=== PATIENT | female | born 1990 | race Caucasian/White ===

== ENCOUNTER 2018-11-21 05:28 | Inpatient (IN) | payer MEDICAID ==
[~2018-11-21] VITALS: Ht 172.7 cm; Wt 150.9 kg
[2018-11-21] VITALS (18 sets, daily range): BP systolic 113–137; BP diastolic 64–88; PULSE 54–75; TEMP 97.2–98.8
[~2018-11-21 05:28] MED LIST: ALDOMET 250MG250 MG PO; MAXZIDE-25MG TA1 TAB PO; MOTRIN 600600 MG/TAB PO; MOTRIN 800800 MG/TAB PO; PERCOCET 325 MG1 TA2 PO; PRENATAL1 TA1; SENOKOT S 50 MG1 TAB PO; TUMS E-X750 MG PO
--- NOTE | 2018-11-21 05:35 | NUR ---
0535 ADMITTED TO [facility] FOR AM C/S. ORIENTED TO ROOM. EFM ON AND PERMITS SIGNED.
[2018-11-21 06:19] LABS: BASO % 0.5 % (0.0-2.0); EOS % 0.4 % (0-4.0); GRAN # 5.4 (1.4-6.5); HEMATOCRIT 37.9 % (37.0-47.0); HEMOGLOBIN 12.7 g/dl (12.5-16.0); LYMPH # 2.4 (1.2-3.4); LYMPH % 28.8 % (20.0-51.0); MEAN CELL VOLUME 90 fl (80.0-100.0); MEAN CORPUSCULAR HEMOGLOBIN 30 pg (27.0-31.0); MEAN CORPUSCULAR HGB CONC 34 g/dl (33.0-37.0); MONO # 0.5 (0.1-0.6); MONO % 5.7 % (1.7-9.3); PLATELET COUNT 203 K/mm3 (130-400); RED BLOOD COUNT 4.21 M/mm3 (4.10-5.30); REDCELL DISTRIBUTION WIDTH-CV 13.2 % (11.5-14.5)
[2018-11-21] MEDS ORDERED: ZOFRAN 4MG T4 MG/TAB (06:19)
[2018-11-21] MEDS ORDERED: ZANTAC 150MG T150 MG PO (06:20)
--- NOTE | 2018-11-21 17:40 | NUR ---
Patient ambulatory to bathroom with standby assist. Catheter removed, pericare done and new gown/pad/chucks. Patient tolerates well will continue to monitor.
[2018-11-22 01:45] VITALS: BP 103/65; PULSE 64; TEMP 98.6
[2018-11-22 09:00] VITALS: BP 125/74; PULSE 84; TEMP 98.4
[2018-11-22 12:00] VITALS: BP 137/90; PULSE 92; TEMP 97.9
[2018-11-22 17:00] VITALS: BP 140/81; PULSE 65; TEMP 98
[2018-11-22 17:54] LABS: COLLECTION METHOD CLEAN CATCH
[2018-11-22 17:56] LABS: BASO % 0.3 % (0.0-2.0); EOS # 0.2 (0.0-0.7); EOS % 1.8 % (0-4.0); GRAN # 5.9 (1.4-6.5); GRAN % 66.4 % (42.2-75.2); HEMOGLOBIN 11.1 g/dl (12.5-16.0); LYMPH # 2.1 (1.2-3.4); MEAN CELL VOLUME 94 fl (80.0-100.0); MEAN CORPUSCULAR HEMOGLOBIN 30 pg (27.0-31.0); MEAN CORPUSCULAR HGB CONC 32 g/dl (33.0-37.0); MEAN PLATELET VOLUME 11.2 fl (7.4-10.4); MONO # 0.6 (0.1-0.6); MONO % 7.1 % (1.7-9.3); PLATELET COUNT 174 K/mm3 (130-400); RED BLOOD COUNT 3.65 M/mm3 (4.10-5.30); REDCELL DISTRIBUTION WIDTH-CV 13.2 % (11.5-14.5)
[2018-11-22 17:57] LABS: HEMATOCRIT 34.3 % (37.0-47.0)
[2018-11-22 18:05] LABS: PH 6 (5-8); SQUAMOUS EPITHELIAL 20-50 /hpf; URINE APPEARANCE Hazy; URINE BACTERIA None Seen /hpf; URINE BILIRUBIN Negative (NEGATIVE); URINE BLOOD 2+ (NEGATIVE); URINE COLOR Red; URINE GLUCOSE Negative (NEGATIVE); URINE KETONE Trace (NEGATIVE); URINE LEUKOCYTE ESTERASE Trace (NEGATIVE); URINE NITRATE Negative (NEGATIVE); URINE PROTEIN(semi-quant) 3+ (NEGATIVE); URINE RBC >50 /hpf; URINE UROBILINOGEN Negative (NEGATIVE)
[2018-11-22 18:06] LABS: BILIRUBIN,TOTAL 0.2 mg/dL (0.0-1.0); CALCIUM 8.6 mg/dL (8.4-10.2); CREATININE, serum 0.86 mg/dL (0.52-1.25); POTASSIUM 4.5 mmol/L (3.4-5.0); TOTAL PROTEIN 5.8 gm/dL (6.4-8.2)
[2018-11-22 20:58] VITALS: BP 150/91; PULSE 78; TEMP 98.1
[2018-11-22 22:00] VITALS: BP 135/71; PULSE 63
--- NOTE | 2018-11-23 07:30 | NUR ---
Rests in bed, alert, sits up in chair. Spouse at bedside holding baby. Denies any needs at this time.
[2018-11-23 07:45] VITALS: BP 139/95; PULSE 87; TEMP 97.9
--- NOTE | 2018-11-23 10:23 | NUR ---
Rests in bed, alert. Holds baby, denies any needs at this time.
[2018-11-23] MEDS ORDERED: PERCOCET 325 MG1 TA2 PO (11:17)
[2018-11-23] MEDS ORDERED: IBU600 MG PO (11:17)
== END 2018-11-23 12:10 | disposition home or self-care (01) | DRG 784 ==
LOC: OB 05:28 → LDR 20:26 → OB 11-23 12:10
PROVIDERS: Obstetrics & Gynecology; ADMIT Obstetrics & Gynecology
PROC: 10D00Z1 Extraction of Products of Conception, Low, Open Approach (ICD-10-PCS; principal; 2018-11-21)
PROC: 0UT60ZZ Resection of Left Fallopian Tube, Open Approach (ICD-10-PCS; 2018-11-21)
PROC: 0UB50ZZ Excision of Right Fallopian Tube, Open Approach (ICD-10-PCS; 2018-11-21)
DX: O34.211 Maternal care for low transverse scar from previous cesarean delivery (principal); O10.92 Unspecified pre-existing hypertension complicating childbirth; Z3A.39 39 weeks gestation of pregnancy; Z37.0 Single live birth; Z40.03 Encounter for prophylactic removal of fallopian tube(s); O99.214 Obesity complicating childbirth; E66.01 Morbid (severe) obesity due to excess calories; O69.81X0 Labor and delivery complicated by cord around neck, without compression, not applicable or unspecified
CPT/HCPCS: J0690; J1885; J2175; J2370; J2405; J2590; J3010; J7120